=== PATIENT | male | born 2000 | race Caucasian/White ===

== ENCOUNTER → 2020-03-26 | Outpatient (REF) | payer BC | LOC: M LAB REF 11:12 | PROVIDERS: ATTEND Physician Assistant | DX: Z11.59 Encounter for screening for other viral diseases (principal) ==

== ENCOUNTER → 2021-03-13 | Outpatient (CLI) | payer BC ==
[~2021-03-13] MED LIST: PROHANCE 279.3MG/ML 15ML VIAL As Ordered ONE
--- NOTE | 2021-03-14 00:35 | REPVR ---
PROCEDURE INFORMATION: Exam: MR Head Without and With Contrast Exam date and time: 03/13/2021 5:40 PM Age: 20 years old Clinical indication: Condition or disease; Other: Esotropia of left eye; Additional info: Esotropia of lt eye TECHNIQUE: Imaging protocol: MR of the head without and with intravenous contrast. Contrast material: PROHANCE; Contrast volume: 13 ml; Contrast route: INTRAVENOUS (IV); COMPARISON: No relevant prior studies available. FINDINGS: Brain: No intracranial hemorrhage or extra-axial fluid collection. No evidence of mass effect or midline shift. No white matter abnormalities. No restricted diffusion to suggest acute infarct. No abnormal intracranial enhancement. Cerebral ventricles: Ventricles, cisterns, and sulci are normal. Bones/joints: Unremarkable. Mastoid air cells: No mastoid effusion. Soft tissues: Unremarkable. IMPRESSION: No acute intracranial findings. Electronically signed by: Jourdan Albarran On 03/14/2021 00:35:12 AM
--- NOTE | 2021-03-14 00:42 | REPVR ---
PROCEDURE INFORMATION: Exam: MR Orbit Without and With Contrast Exam date and time: 03/13/2021 5:41 PM Age: 20 years old Clinical indication: Other: Esotropia of left eye; Additional info: Esotropia of lt eye TECHNIQUE: Imaging protocol: MR Orbit was performed without and with contrast. Contrast material: PROHANCE; Contrast volume: 13 ml; Contrast route: INTRAVENOUS (IV); COMPARISON: No relevant prior studies available. FINDINGS: Orbital cavity: Nonspecific symmetric bilateral mild esotropia (best visualized on axial T2 image 12). Globes are intact. Intraconal and extraconal fat are normal. Extraoccular muscles are normal. Optic nerves are normal. Optic tracts are normal. Vascular structures are unremarkable. No abnormal enhancement within the orbits. Paranasal sinuses: Moderate mucosal thickening of the maxillary sinuses. Soft tissues: Unremarkable. IMPRESSION: 1. Nonspecific symmetric bilateral mild esotropia. Otherwise, no acute findings in the orbits. Follow-up at the discretion of ophthalmology. 2. Moderate mucosal thickening of the maxillary sinuses. Electronically signed by: Jourdan Albarran On 03/14/2021 00:42:19 AM
== END ==
LOC: M RAD 15:55
DX: H50.9 Unspecified strabismus (principal)